=== PATIENT | male | born 1995 | race American Indian/Alaskan Native ===

== ENCOUNTER 2017-10-28 12:42 | Emergency (ER) | payer OTHER ==
[2017-10-28 14:37] LABS: Basophils % (Auto) 0.2 % (0.0-1.8); Eosinophils % (Auto) 0.2 % (0.0-4.3); Hematocrit 45.3 % (35.5-45.6); Hemoglobin 15.1 gm/dl (11.8-15.2); Lymphocytes # (Auto) 1.9 K/mm3 (1.2-5.4); Lymphocytes % (Auto) 31.9 % (13.4-35.0); Mean Corpuscular HGB Conc 33 % (32-34); Mean Corpuscular Hemoglobin 32 pg (28-32); Mean Corpuscular Volume 95 fl (84-94); Monocytes # (Auto) 0.6 K/mm3 (0.0-0.8); Monocytes % (Auto) 10.9 % (0.0-7.3); Platelet Count 225 K/mm3 (140-440); Red Blood Count 4.78 M/mm3 (3.65-5.03); Red Cell Distribution Width 13.3 % (13.2-15.2)
[2017-10-28 14:43] LABS: BUN/Creatinine Ratio 11; Blood Urea Nitrogen 10 mg/dL (9-20); Calcium 9.8 mg/dL (8.4-10.2); Hemolysis Index 6
[2017-10-28] MEDS ORDERED: GEODON IM ONE (15:57)
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
[2017-10-28 17:08] LABS: Amphetamine Screen,Urine PRESUMPTIVE NEGATIVE; Benzodiazepines Screen,Urine PRESUMPTIVE NEGATIVE; Cocaine Screen,Urine PRESUMPTIVE NEGATIVE; Methadone Screen,Urine PRESUMPTIVE NEGATIVE; Opiate Screen,Urine PRESUMPTIVE NEGATIVE
[2017-10-28 17:09] LABS: Cannabinoid Screen,Urine PRESUMPTIVE POSITIVE
[2017-10-28 17:15] LABS: Bilirubin,Urine NEG (Negative); Blood,Urine NEG (Negative); Calcium Oxalate Crystals,Urine 1+; Mucus,Urine 3+ /HPF; Nitrite,Urine NEG (Negative)
[2017-10-28 17:16] LABS: Color,Urine Dark Yellow (Yellow)
[2017-10-29] MEDS ORDERED: BENADRYL IM PRN (07:09)
[2017-10-29] MEDS ORDERED: HALDOL IM PRN (07:09)
--- NOTE | 2017-10-29 11:21 | Consultation ---
History of Present Illness - Reason for Consult Consult date: 10/29/17 Reason for consult: Mental Health Evaluation Requesting physician: JON NEW - Chief Complaint Chief complaint: "Why me" - History of Present Psychiatric Illness She is a 22-year-old Afro-[place]an male who is presenting with an acute psychotic episode. Today the patient is calm and cooperative, but hyper verbal during the assessment. He stated that he want to be released to go to work. The patient answers to questions were not logical. He has a tangential thought process. I had to ask him questions several time to get an answer, possibly responded to some type of stimuli. He stated that he had not slept for 4 days prior to his admission to the hospital. The patient is a poor historian at this time. No gestures of SI/HI's. Medications and Allergies Allergies Allergy/AdvReac Type Severity Reaction Status Date / Time No Known Allergies Allergy Verified 10/16/15 00:39 Home Medications Medication Instructions Recorded Confirmed Last Taken Type No Known Home Medications [No 10/16/15 10/29/17 Unknown History Reported Home Medications] Active Meds: Active Medications Diphenhydramine HCl (Benadryl) 50 mg IM Q6H PRN PRN Reason: Agitation Last Admin: 10/29/17 09:31 Dose: 50 mg Haloperidol Lactate (Haldol) 10 mg IM Q8H PRN PRN Reason: Agitation Last Admin: 10/29/17 09:31 Dose: 10 mg Lorazepam (Ativan) 2 mg IM Q8H PRN PRN Reason: Agitation Past psychiatric history - Past Medical History Past Medical History: No medical history Past Surgical History: No surgical history - past Psychiatric treatment and history psychiatric treatment history: The patient would not confirm or deny a mental health dx. He denies a fam psy hx. - Social History Social history: lives with family Mental Status Exam - Vital signs Last Vital Signs Temp 98.4 F 10/29/17 10:46 Pulse 111 H 10/29/17 10:46 Resp 20 10/29/17 10:47 BP 133/100 10/29/17 10:46 Pulse Ox 100 10/29/17 10:47 - Exam Narrative exam: MSE: Appearance: calm, cooperative Behavior: regular eye contact Speech: regular rate and tone Mood: "okay" Affect: labile Thought Process: tangential Thought Content: denies SI/HI's and AVH's, disorganized Motor Activity: ambulatory Cognition: A/O x3 Insight: poor Judgment: poor Results Result Diagrams: 10/28/17 14:11 10/28/17 14:11 Abnormal lab results 10/28/17 10/28/17 10/28/17 Range/Units 14:11 14:11 14:11 MCV 95 H (84-94) fl Garza % (Auto) 10.9 H (0.0-7.3) % Glucose 106 H (75-100) mg/dL Ur Specific [place] (1.003-1.030) Salicylates < 0.3 L (2.8-20.0) mg/dL 10/28/17 Range/Units 16:30 MCV (84-94) fl Garza % (Auto) (0.0-7.3) % Glucose (75-100) mg/dL Ur Specific [place] 1.034 H (1.003-1.030) Salicylates (2.8-20.0) mg/dL All other labs normal. Assessment and Plan Assessment and plan: Impression: Unspecified Mood DO with psy features. Today the patient is calm and cooperative, but hyper verbal during the assessment. Patient positive for marijuana. DDx: Bipolar DO with psychosis, R/O Schizophrenia, R/O Substance Induced Psychosis Recommendation/Plan: Continue 1013 with placement to inpatient psy services. Start Zyprexa 5 mg PO HS for mood/psychosis and Depakote 500 mg PO BID for mood. Discussed possible metabolic side effects of Zyprexa with patient.
[2017-10-29] MEDS: ATIVAN IM PRN ×2 (11:41→22:00)
[2017-10-29 12:16] LABS: Alanine Aminotransferase 13 units/L (7-56); Lipase 30 units/L (13-60)
--- NOTE | 2017-10-31 10:21 | Progress Note ---
Subjective - Reason for Consult Consult date: 10/31/17 Reason for consult: Psychiatry Follow-up - Chief Complaint Chief complaint: "When can I leave" He is a 22-year-old Afro-Afghan male who is presenting with an acute psychotic episode. Today the patient is calm and cooperative during the assessment. The patient was asked about what happened prior to his admission, he stated, "I don't know." Per collateral information from his sister Cortney Trevino , she stated that her brother's behavior has been bizarre (delusional and paranoia) for several months. She also sated that the patient is adopted and his biological mother was addicted to crack cocaine prior to his . He denies SI/HI's and AVH's. Mental Status Exam - Vital signs Last Vital Signs Temp 98.8 F 10/30/17 22:00 Pulse 98 H 10/30/17 22:00 Resp 18 10/30/17 22:00 BP 149/83 10/30/17 22:00 Pulse Ox 98 10/30/17 22:00 - Exam Narrative exam: MSE: Appearance: calm, cooperative Behavior: regular eye contact Speech: regular rate and tone, hyper verbal Mood: "okay" Affect: congruent to mood Thought Process: circumstantial Thought Content: denies SI/HI's and AVH's, disorganized Motor Activity: ambulatory Cognition: A/O x3 Insight: variable Judgment: variable Assessment and Plan Impression: Unspecified Mood DO with psy features. Today the patient is calm and cooperative during the assessment. Patient positive for marijuana. DDx: Bipolar DO with psychosis, R/O Schizophrenia, R/O Substance Induced Psychosis Recommendation/Plan: Continue 1013 with placement to inpatient psy services. Modify Zyprexa to 5 mg PO BID for mood/psychosis and continue Depakote 500 mg PO BID for mood. Discussed possible metabolic side effects of Zyprexa with patient. Please contact his sister Cortney Trevino [phone] before patient is transferred.
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
--- NOTE | 2017-11-02 17:38 | Progress Note ---
Subjective - Reason for Consult Consult date: 11/02/17 Reason for consult: psychiatric follow-up - Chief Complaint Chief complaint: "Mervat" He is a 22-year-old Afro-Af[place] male who is presenting with an acute psychotic episode. Today the patient was labile and tearful, and paranoid. He did talk about how his girlfriend was "lack, successful, [place]" and hence everyone in his family, "are plotting against us". He denied any current suicidal or homicidal ideations. Thought processes appeared disorganized. Denies any auditory hallucinations. Mental Status Exam - Vital signs Last Vital Signs Temp 98.5 F 11/02/17 07:41 Pulse 74 11/02/17 07:41 Resp 16 11/02/17 07:41 BP 108/60 11/02/17 07:41 Pulse Ox 100 11/01/17 12:32 - Exam Orientation: time, place Affect: depressed, other (tearful) Mood: fearful Thought content: delusions (paranoid), paranoia Thought Process: Loose Associations, Disorganized Perceptions: none Speech: pressured Concentration: distractible Motor activity: normal Level of consciousness: alert Memory: Intact Interaction: guarded, defensive Assessment and Plan Plan: Continue the patient on 1013, for psychiatric hospital placement. Continue his current medications including Zyprexa 5 mg twice a day and Depakote 500 mg twice a day.
--- NOTE | 2017-11-04 13:09 | Progress Note ---
Subjective - Reason for Consult Consult date: 11/04/17 Reason for consult: Psychiatry Follow-up - Chief Complaint Chief complaint: "I need to leave" He is a 22-year-old Afro-Chinese male who is presenting with an acute psychotic episode. Today the patient calm, but labile during the assessment. He continue to state that his family is against him. He was asked about the statement he made 2 days ago reference his girlfriend, he stated, "I am over that." He denies SI/HI's and AVH's. He denies any side effects of his medications. 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 Today the patient is calm and cooperative during the assessment. Patient positive for marijuana. DDx: Bipolar DO with psychosis, R/O Schizophrenia, R/O Substance Induced Psychosis Recommendation/Plan: Continue 1013 with placement to [facility] pending transport time. Zyprexa 5 mg PO BID for mood/psychosis and continue Depakote 500 mg PO BID for mood. Discussed possible metabolic side effects of Zyprexa with patient. Please contact his sister Cortney Trevino [phone] before patient is transferred.
--- NOTE | 2017-11-05 10:32 | Progress Note ---
Subjective - Reason for Consult Consult date: 11/05/17 Reason for consult: Psychiatry Follow-up - Chief Complaint Chief complaint: "Will I be transferred today" He is a 22-year-old Afro-Syrian male who is presenting with an acute psychotic episode. Today the patient calm during the assessment. He was informed that he would be transferred today. He denies SI/HI's. He denies any side effects of his medications. 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 Today the patient is calm and cooperative during the assessment. Patient positive for marijuana. DDx: Bipolar DO with psychosis, R/O Schizophrenia, R/O Substance Induced Psychosis Recommendation/Plan: Continue 1013 with placement to [facility] today. Continue Zyprexa 5 mg PO BID for mood/psychosis and continue Depakote 500 mg PO BID for mood. Discussed possible metabolic side effects of Zyprexa with patient. Please contact his sister Cortney Trevino [phone] before patient is transferred.
[2017-11-05 10:55] VITALS: BP 114/69
== END 2017-11-05 11:55 ==
LOC: EEVIPCON 12:42 → ED 12:42
DX: F23 Brief psychotic disorder (principal); F12.10 Cannabis abuse, uncomplicated
CPT/HCPCS: 36415; 80048; 80164; 80307; 81001; 82150; 83690; 84075; 84450; 84460; 85025; 96372; 99285; G0480; J1200; J1630; J2060; J3486; 80320

== ENCOUNTER 2018-03-12 14:17 | Emergency (ER) | payer SELFPAY ==
[2018-03-12 15:37] LABS: Bilirubin,Urine NEG (Negative); Blood,Urine NEG (Negative); Color,Urine Yellow (Yellow); Mucus,Urine FEW /HPF; Protein,Urine <15 mg/dL mg/dL (Negative); Urobilinogen,Urine < 2.0 mg/dL (<2.0)
[2018-03-12 15:40] LABS: Basophils % (Auto) 0.3 % (0.0-1.8); Eosinophils % (Auto) 0.7 % (0.0-4.3); Hemoglobin 13.9 gm/dl (11.8-15.2); Lymphocytes # (Auto) 1.2 K/mm3 (1.2-5.4); Lymphocytes % (Auto) 22.2 % (13.4-35.0); Mean Corpuscular HGB Conc 33 % (32-34); Mean Corpuscular Hemoglobin 32 pg (28-32); Mean Corpuscular Volume 95 fl (84-94); Monocytes # (Auto) 0.6 K/mm3 (0.0-0.8); Monocytes % (Auto) 10.8 % (0.0-7.3); Platelet Count 229 K/mm3 (140-440); Red Blood Count 4.41 M/mm3 (3.65-5.03)
[2018-03-12 15:42] LABS: Amphetamine Screen,Urine PRESUMPTIVE NEGATIVE; Benzodiazepines Screen,Urine PRESUMPTIVE NEGATIVE; Cannabinoid Screen,Urine PRESUMPTIVE NEGATIVE; Cocaine Screen,Urine PRESUMPTIVE NEGATIVE; Methadone Screen,Urine PRESUMPTIVE NEGATIVE; Opiate Screen,Urine PRESUMPTIVE NEGATIVE
[2018-03-12 15:52] LABS: Blood Urea Nitrogen 9 mg/dL (9-20)
[2018-03-12 15:53] LABS: BUN/Creatinine Ratio 8; Calcium 9.5 mg/dL (8.4-10.2); Hemolysis Index 16
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
[2018-03-12 17:15] VITALS: BP 141/58
== END 2018-03-12 17:13 | disposition home or self-care (01) ==
LOC: ED 14:17
DX: R45.4 Irritability and anger (principal)
CPT/HCPCS: 36415; 80048; 80307; 81001; 85025; 99284; G0480; 80320